=== PATIENT | female | born 1935 | race Hispanic/Latino ===

== ENCOUNTER 2023-07-10 05:54 | Emergency (ER) | payer OTHER ==
[~2023-07-10] VITALS: Ht 167.6 cm; Wt 68.0 kg
[2023-07-10] MEDS ORDERED: HALOPERIDOL INJ 5 MG/ML VIAL IV SCH ×2 (06:00→06:30)
[2023-07-10] MEDS ORDERED: 0.9%NACL 1000ML 1,000 ML IV ONE (06:00)
[2023-07-10 06:05] LABS: BASOPHILS # (AUTO) 0.06 K/uL (0.00-0.20); BASOPHILS % (AUTO) 0.5 % (0.0-5.0); EOSINOPHILS # (AUTO) 0.32 K/uL (0.00-0.70); EOSINOPHILS % (AUTO) 2.9 % (0.0-8.0); HEMATOCRIT 38.3 % (36-48); IMMATURE GRANULOCYTE ABSOLUTE 0.03 K/uL (0-1); LYMPHOCYTES # (AUTO) 1.3 K/uL (1.0-4.8); LYMPHOCYTES % (AUTO) 11.9 % (21.0-51.0); MEAN CORPUSCULAR HEMOGLOBIN 31.3 pg (27.0-33.0); MEAN CORPUSCULAR HGB CONC 33.9 g/dL (32.0-36.0); MEAN CORPUSCULAR VOLUME 92.1 fL (79-99); MONOCYTES # (AUTO) 0.6 K/uL (0.1-1.0); NEUTROPHILS # (AUTO) 8.8 K/uL (1.8-7.7); NEUTROPHILS % (AUTO) 79.4 % (40.0-77.0); PLATELET COUNT (AUTO) 230 K/uL (130-400); RED BLOOD CELL COUNT(AUTO) 4.16 MIL/uL (4.00-5.50); RED CELL DISTRIBUTION WIDTH 13.3 % (11.0-15.5); WHITE BLOOD COUNT (AUTO) 11.1 K/uL (4.8-10.8)
[2023-07-10] MEDS ORDERED: DICYCLOMINE 20MG (10MG/ML) AMP IM STA (06:33)
[2023-07-10 06:36] LABS: ALBUMIN 3.6 g/dL (3.5-5.0); BILIRUBIN,TOTAL 0.6 mg/dL (0.2-1.0); CREATININE 1.3 mg/dL (0.5-1.5); POTASSIUM 3.5 mmol/L (3.5-5.1); TOTAL PROTEIN, SERUM 6.9 g/dL (6.0-8.3)
[2023-07-10] MEDS ORDERED: IOHEXOL-350 75 ML VIAL IV ONE (06:43)
[2023-07-10] MEDS ORDERED: 0.9% NACL 500ML IV.SOLN 500 ML IV STA (11:06)
[2023-07-10 11:40] LABS: APPEARANCE,URINE CLEAR (CLEAR); BILIRUBIN,URINE NEGATIVE (NEGATIVE); COLOR,URINE LIGHT-YELLOW (YELLOW); GLUCOSE, URINE (UA) NEGATIVE (NEGATIVE); KETONES,URINE NEGATIVE (NEGATIVE); LEUKOCYTE ESTERASE ,URINE NEGATIVE Leu/uL (NEGATIVE); NITRATE,URINE NEGATIVE (NEGATIVE); OCCULT BLOOD,URINE NEGATIVE (NEGATIVE); PROTEIN,URINE NEGATIVE (NEGATIVE); UROBILINOGEN,URINE 0.2 mg/dL (0.2-1.0)
[2023-07-10 11:52] LABS: ADD UA MICROSCOPIC YES
[2023-07-10 11:54] LABS: MUCUS,URINE RARE LPF (None Seen); RBC,URINE 0-1 /HPF (0-1); SQUAMOUS EPITHELIAL CELL,UR RARE /HPF (0-2); WBC,URINE 0-1 /HPF (0-1)
[2023-07-10 12:18] VITALS: BP 107/70; PULSE 65; RESP 18; O2SAT 96
== END 2023-07-10 12:23 | disposition home or self-care (01) ==
LOC: EDH 05:54
DX: R10.13 Epigastric pain (principal); R11.0 Nausea; R68.2 Dry mouth, unspecified; I10 Essential (primary) hypertension; E03.9 Hypothyroidism, unspecified; E78.00 Pure hypercholesterolemia, unspecified; Z88.8 Allergy status to other drugs, medicaments and biological substances
CPT/HCPCS: 99284; 74177; 96374; 82150; 84484; 80053; 83690; 85025; 83605 ×2; 81001; 36415; 93005; 96372; J7030; J1630 ×2; J0500; Q9967